=== PATIENT | male | born 1975 | race Caucasian/White ===

== ENCOUNTER 2022-03-28 04:22 | Emergency (ER) | payer OTHER ==
[2022-03-28] MEDS ORDERED: NORCO 5-325 TA1 EACH PO ×2 (05:53→06:09)
== END 2022-03-28 06:17 | disposition home or self-care (01) ==
LOC: FER 04:22
DX: S42.032A Displaced fracture of lateral end of left clavicle, initial encounter for closed fracture (principal); V00.131A Fall from skateboard, initial encounter; Y93.51 Activity, roller skating (inline) and skateboarding; Y92.410 Unspecified street and highway as the place of occurrence of the external cause
CPT/HCPCS: 73030

== ENCOUNTER → 2022-04-02 | Day surgery (SDC) | payer OTHER ==
[~2022-04-02] VITALS: Ht 182.9 cm; Wt 90.7 kg
[~2022-04-02] MED LIST: NORCO 5-325 TA1 EACH PO
[2022-04-02 07:31] LABS: HCT 40.4 % (42.0-52.0); HGB 13.8 g/dl (13.2-18.0); MCH 30.1 pg (25.0-31.0); MCHC 34.2 g/dL (32.0-36.0); MPV 10.5 fL (6.0-9.5); RBC 4.59 M/uL (4.70-6.00); RDW 12.3 % (11.5-14.0); WBC 5.5 K/uL (4.0-10.5)
[2022-04-02 07:54] LABS: ALBUMIN 4.3 g/dL (3.4-5.0); BILIRUBIN - TOTAL 0.7 mg/dL (0.2-1.0); BUN/CREAT RATIO (CALC) 13.9 RATIO; CREATININE 0.79 mg/dL (0.67-1.17); GLOBULIN (CALCULATION) 3.7 g/dL; POTASSIUM 3.6 mmol/L (3.5-5.1)
== END | disposition home or self-care (01) ==
LOC: FAS 06:24
PROVIDERS: Orthopaedic Surgery
DX: S42.032A Displaced fracture of lateral end of left clavicle, initial encounter for closed fracture (principal); S43.52XA Sprain of left acromioclavicular joint, initial encounter; V00.138A Other skateboard accident, initial encounter
CPT/HCPCS: 36415; 71045; 80053; J0690; J1100; J1885; J2250; J2405; J2704; J3010; J7120